=== PATIENT | female | born 1980 | race Caucasian/White ===

== ENCOUNTER → 2016-10-07 | Outpatient (CLI) | payer BC | LOC: LAB 17:03 | PROVIDERS: ATTEND Specialist | DX: Z33.1 Pregnant state, incidental (principal) | CPT/HCPCS: 36415; 84144 ==

== ENCOUNTER → 2016-10-21 | Outpatient (CLI) | payer BC ==
[2016-10-21 19:44] LABS: RHEUMATOID FACTOR NEGATIVE (NEGATIVE)
[2016-10-22 13:50] LABS: T4 (THYROXINE) 6.3 ug/dL (4.7-13.3); TSH (3RD GENERATION) 0.929 uIU/mL (0.358-3.74)
[2016-10-24 06:16] LABS: ANTICARDIOLIPIN IGG 3 GPL (0-14); ANTICARDIOLIPIN IGM 24 MPL (0-12)
[2016-10-27 12:59] LABS: PROTEIN C ACTIVITY 149 % (83-168)
== END | disposition home or self-care (01) | DRG 779 ==
LOC: LAB 15:56
PROVIDERS: ATTEND Neurological Surgery
DX: O03.9 Complete or unspecified spontaneous abortion without complication (principal); M35.8 Other specified systemic involvement of connective tissue; E03.8 Other specified hypothyroidism
CPT/HCPCS: 36415; 81241; 82947; 84436; 84443; 84479; 84482; 85303; 85306; 85597; 85610; 85613; 85635; 85670; 85730; 85732; 86147; 86430; 86800

== ENCOUNTER → 2017-03-24 | Outpatient (CLI) | payer SELFPAY | END | disposition home or self-care (01) | DRG 761 | LOC: LAB 12:11 | PROVIDERS: ATTEND Obstetrics & Gynecology Reproductive Endocrinology | DX: N91.1 Secondary amenorrhea (principal) | CPT/HCPCS: 36415; 84702 ==